=== PATIENT | male | born 1985 | race Caucasian/White ===

== ENCOUNTER 2019-06-10 01:02 | Emergency (ER) | payer OTHER ==
[2019-06-10] MEDS ORDERED: FOLIC ACID 5 MG/1 ML IV ONE (01:06)
[2019-06-10] MEDS ORDERED: MULTIVIT INFUSN,ADULT 1,VIT K 10 ML VIAL IV ONE (01:06)
[2019-06-10] MEDS ORDERED: THIAMINE HCL 100 MG, MULTIVIT INFUSN,ADULT 1,VIT K 10 ML, FOLIC ACID 5 MG in 0.9 % SODI... IV ONE (01:06)
[2019-06-10] MEDS ORDERED: THIAMINE HCL 200 MG/2 ML VIAL IV ONE (01:06)
[2019-06-10] MEDS ORDERED: 0.9 % SODIUM CHLORIDE 1,000 ML IV ONE ×2 (01:08→01:50)
--- NOTE | 2019-06-10 01:21 | ED Physician Documentation ---
General Adult - HISTORIAN Historian: patient - HPI Stated Complaint: alcohol intoxication Chief Complaint: General Adult Additional Information: Patient presents to ED after presenting to [facility] for alcohol detox. Upon arrival to [facility] he was intoxicated with breathalyzer reading of 0.335. [facility] refused admission and sent to ED. Patient was arrested today for DWI. Onset: hours (8) Timing: still present Severity: moderate - ROS CONST: no problems EYES/ENT: none CVS/RESP: none GI/: denies: vomiting, nausea MS/SKIN/LYMPH: none NEURO/PSYCH: denies: headache - PAST HX Past History: asthma Other History: none Surgeries/Procedures: none Allergies/Adverse Reactions: Allergies Allergy/AdvReac Type Severity Reaction Status Date / Time No Known Allergies Allergy Verified 06/10/19 01:41 Home Medications: Ambulatory Orders Medication Instructions Recorded Albuterol Sulfate [Albuterol 06/10/19 Sulfate Hfa] Pantoprazole Sodium [Protonix] 20 mg 06/10/19 - SOCIAL HX Smoking History: cigarettes, greater than 1 pack/day Alcohol Use: heavy - FAMILY HX Family History: No - REVIEWED ASSESSMENTS Nursing Assessment Reviewed: Yes Vitals Reviewed: Yes ED Results Lab/Radiology - Radiology Radiology Impressions: Report Submission Date: Jun 10, 2019 3:45:06 AM CDT Patient Study Name: KRISTAN WORRELL Date: Jun 10, 2019 3:27:24 AM CDT Modality Type: DX Gender: M Description: CHEST 2VIEW : 89 Institution: [facility] Physician: LETICIA BERNAL PA and lateral chest Clinical history: Dyspnea. Cough. Findings: Examination of the chest in PA and lateral views with no prior films for comparison demonstrates the lungs to be clear. Cardiovascular and mediastinal silhouettes are within normal limits. Bony thorax is intact. Impression: 1. Negative chest. Electronically signed on Jun 10, 2019 3:45:06 AM CDT by: Terry Pepe - Orders Orders: ED Orders Category Date Time Status Place IV Lock 1T Care 06/10/19 01:06 Active ALCOHOL MEDICAL USE ONLY Stat Lab 06/10/19 Ordered CBC/PLATELET/DIFF Routine Lab 06/10/19 Ordered CMP Routine Lab 06/10/19 Ordered 0.9 % Sodium Chloride [Normal Saline] 1,000 ml Med 06/10/19 01:08 Active IV Q1H Folic Acid [Folvite] Med 06/10/19 01:06 Discontinued 5 mg IV NOW ONE Multivit Infusn,Adult 1,Vit K [M.v.i. Adult] Med 06/10/19 01:06 Discontinued 10 ml IV NOW ONE Thiamine HCl [Vitamin B-1] Med 06/10/19 01:06 Discontinued 200 mg IV NOW ONE Thiamine HCl [Vitamin B-1] 100 mg Med 06/10/19 01:06 Active Multivit Infusn,Adult 1,Vit K [M.v.i. Adult] 10 ml Folic Acid [Folvite] 5 mg 0.9 % Sodium Chloride [Normal Saline] 1,000 ml IV NOW General Adult Physical Exam - PHYSICAL EXAM GENERAL APPEARANCE: no distress EENT: PUNEET NECK: supple RESPIRATORY: no resp distress, wheezes (expiratory wheezing bilaterally) CVS: reg rate & rhythm, heart sounds normal ABDOMEN: soft, normal bowel sounds BACK: normal inspection, no CVA tenderness SKIN: warm/dry EXTREMITIES: non-tender, normal range of motion, no edema NEURO: oriented X3, motor nml Discharge Clincal Impression: Alcohol intoxication Qualifiers: Complication of substance-induced condition: uncomplicated Qualified Code(s): F10.920 - Alcohol use, unspecified with intoxication, uncomplicated Additional Instructions: 1. Go to [facility] to complete your alcohol detox 2. Alcohol cessation is recommended 3. Follow up with PCP within 1 week 4. Return to ER for new or worsening symptoms Condition: Stable Disposition: 01 HOME, SELF-CARE Decision to Admit: NO Date of Decison to Admit: 06/10/19 Decision Time: 06:43
[2019-06-10] MEDS ORDERED: IPRATROPIUM/ALBUTEROL SULFATE 3 ML AMPUL.NEB NEB ONE ×2 (01:27→03:24)
[2019-06-10] MEDS ORDERED: THIAMINE HCL 200 MG/2 ML VIAL ONE (01:50)
[2019-06-10 02:29] LABS: eGFR (Non-African) > 60
--- NOTE | 2019-06-10 03:47 | Diagnostic Imaging Report ---
LETICIA BERNAL [facility] [id number] [facility] [address] [place], [place]. [address] Report Submission Date: Jun 10, 2019 3:45:06 AM CDT Patient Study Name: KRISTAN WORRELL Date: Jun 10, 2019 3:27:24 AM CDT Modality Type: DX Gender: M Description: CHEST 2VIEW : 89 Institution: [facility] Physician: LETICIA BERNAL PA and lateral chest Clinical history: Dyspnea. Cough. Findings: Examination of the chest in PA and lateral views with no prior films for comparison demonstrates the lungs to be clear. Cardiovascular and mediastinal silhouettes are within normal limits. Bony thorax is intact. Impression: 1. Negative chest. Electronically signed on Jun 10, 2019 3:45:06 AM CDT by: Terry MATHEW
[2019-06-10 07:01] VITALS: BP 99/55
== END 2019-06-10 06:53 | disposition home or self-care (01) ==
LOC: ED 01:02
DX: F10.920 Alcohol use, unspecified with intoxication, uncomplicated (principal); Y99.8 Other external cause status
CPT/HCPCS: 71046; 80053; 80320; 85025; 94640; 96361; 96365; 96375; 99283; 99284; J3411; J3490; G0480; J7030; S1016